=== PATIENT | female | born 1995 | race Caucasian/White ===

== ENCOUNTER 2024-03-23 19:34 | Emergency (ER) | payer SELFPAY ==
[2024-03-23 19:39] VITALS: BP 142/95
[2024-03-23 19:56] LABS: % Basophils 0.4 % (0-2); % Eosinophils 1.9 % (0-6); % Immature Granulocytes 0.4 % (0-0.5); % Lymphocytes 26.1 % (20.5-51.1); % Monocytes 6.9 % (1.7-9.3); % Neutrophils 64.3 % (42.2-75.2); Absolute Basophils 0.1 10^3/uL (0-0.2); Absolute Eosinophils 0.3 10^3/uL (0-0.7); Absolute Immature Granulocytes 0.1 10^3/uL (0-0.05); Absolute Lymphocytes 3.5 10^3/uL (1.2-3.4); Absolute Monocytes 0.9 10^3/uL (0.1-0.6); Absolute Neutrophils 8.6 10^3/uL (1.4-6.5); Hematocrit 37.8 % (37.0-47.0); Hemoglobin 12.9 g/dL (12.0-16.0); Mean Corp Hgb Conc. 34.1 g/dL (33.0-37.0); Mean Corpuscular Volume 82.2 fL (81.0-99.0); Mean Platelet Volume 9.5 fL (7.4-10.4); Nucleated Red Blood Cells % 0 %; Platelet Count 336 10^3/uL (130-400); Red Cell Dist. Width 13.9 % (11.5-14.5); Urine Albumin Negative (Neg - Trace); Urine Bilirubin Negative (Negative); Urine Character Clear (Clear); Urine Color Yellow; Urine Glucose Negative (Negative); Urine Ketone Negative (Negative); Urine Leukocyte Trace (Negative); Urine Nitrite Negative (Negative); Urine Occult Blood Negative (Negative); Urine Urobilinogen Negative (Neg - 1+); White Blood Cell Count 13.4 10^3/uL (4.8-10.8)
[2024-03-23 20:05] LABS: Urine Red Blood Cell 0-2 /HPF (0-2); Urine Squamous Cell 16-20 /LPF (Few)
[2024-03-23 20:06] LABS: Urine Bacteria Few (Negative)
[2024-03-23 20:15] LABS: ALT (SGPT) 26 U/L (0-35); AST (SGOT) 29 U/L (14-36); Albumin 4.4 g/dl (3.5-5.0); Alkaline Phosphatase 66 U/L (38-126); Blood Urea Nitrogen 8 mg/dl (7-17); Calcium 9.9 mg/dl (8.4-10.2); Carbon Dioxide 25 mmol/L (22-30); Chloride 104 mmol/L (98-107); Glucose 88 mg/dl (70-99); Potassium 3.9 mmol/L (3.5-5.1); Sodium 139 mmol/L (135-145); Total Bilirubin 0.4 mg/dl (0.2-1.3); Total Protein 7.2 g/dl (6.3-8.2); eGFR > 60.00
[2024-03-23 20:23] LABS: Lipase 104 U/L (23-300)
--- NOTE | 2024-03-23 22:38 | ED.GENMED ---
History of Present Illness
General
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
Source: patient
Exam Limitations: none
Time Seen by Provider: 03/23/24 21:52
History of Present Illness
History of Present Illness:
This is a 28 year old female that comes in with severe abd pain. State that she has sever abd pain and pelvic pain. States that she is on fertility medication and she thought yesterday that she ovulated. Then last night she started with severe abd
pain that she was in the position on her bed. States that she took Advil and this helped some. States that she thought she had a ruptured cyst but today the pain has continued and she feels bloated. Denies any fever, chills, chest pain, SOB,
nausea, vomiting, diarrhea, headache, dizziness, urinary burning.
Past History
Past History
ED Past Medical History: Asthma and Other (Migraines, PCOS)
ED Past Surgical History: Orthopedic (Right shoulder surgery) and Tonsilectomy
Social History
Tobacco: Non-smoker
Alcohol: None
Personal:
Living: with family
Family History
Family History: Negative Diabetes, Hypertension or CAD
Review of Systems
Review of Systems
All Other Systems: ROS reviewed and negative except as documented in HPI and ROS
Constitutional: Reports no symptoms; Denies fever or chills
EENT: Reports no symptoms
Respiratory: Reports no symptoms; Denies cough or trouble breathing
Cardiac: Reports no symptoms; Denies chest pain
ABD/GI: Reports abdominal pain; Denies nausea, vomiting or diarrhea
: Reports no symptoms; Denies dysuria, frequency or urgency
Musculoskeletal: Reports no symptoms
Skin: Reports no symptoms
Neurological: Reports no symptoms; Denies dizzy or headache
Psychiatric: Reports no symptoms
Phy Exam
General Physical Exam
General Presentation: no apparent distress
General age: appears stated age
General Skin: warm and dry
General Habitus: normal
General Mental: alert
General Hydration: appears well hydrated
ENT Exam
ENT Exam: TM's normal, pharynx normal and neck supple
Eye Exam
Eye Exam: EOMI
Cardiovascular Exam
Cardiovascular Exam: regular rate/rhythm, no edema, no murmur and normal peripheral pulses
Pulmonary Exam
Pulmonary Exam: lungs clear, no respiratory distress, no rales, chest non tender, no crackles, no rhonchi, no wheezing and no cough
Gastrointestinal Exam
Gastrointestinal Exam: normal bowel sounds, soft, no organomegaly, no pulsatile mass, non distended and tender (Lower abd tenderness R>L with rebound tenderness)
Musculoskeletal Exam
Musculoskeletal Exam: full ROM and no edema
Skin Exam
Skin Exam: normal color, warm/dry, no rash and no petechia
Psychiatric Exam
Psychiatric Exam: normal mood/affect
Course
Orders/Labs/Results
Orders:
Orders
03/23/24 19:49
Complete Blood Count/With Diff Urgent
Comprehensive Metabolic Panel Urgent
HCG, Serum Qualitative Screen Urgent
Comment: ADD ON
Lipase Urgent
Urine Culture Reflexed from UA [Urinalysis Reflex To Culture] Urgent
Date Specimen was Collected: 03/23/24
Time Specimen was Collected: 19:41
Urine Microscopic Reflex Cult Urgent
03/23/24 22:17
CT Abd/pelvis W Iv Cont Urgent
Comment:
Reason For Exam: Lower abd pain
0.9% Sodium Chloride 1000 ml [Nss] 1,000 ml IV BOLUS
US Pelvis Only (non-obstetric) Urgent
Comment:
Reason For Exam: abd pain
03/23/24 22:18
Add On- LAB Urgent
Tests Added?: HCG
03/23/24 22:41
Ketorolac [Toradol] 30 mg IV NOW STA
Abnormal Lab Results
03/23/24
19:49
WBC 13.4 H 10^3/uL
(4.8-10.8)
Abs Immat Gran (auto) 0.1 H 10^3/uL
(0-0.05)
Absolute Neuts (auto) 8.6 H 10^3/uL
(1.4-6.5)
Absolute Lymphs (auto) 3.5 H 10^3/uL
(1.2-3.4)
Absolute Monos (auto) 0.9 H 10^3/uL
(0.1-0.6)
Leukocyte Esterase Rfl Trace A
(Negative)
Urine Bacteria (Reflex) Few A
(Negative)
03/23/24 19:49
03/23/24 19:49
Leukocytosis, Urine negative for infection. Lipase normal at 104, HCG negative
Vital Signs
Initial and Last Documented VS:
Initial Vital Signs
Temp Pulse Resp BP Pulse Ox
98.2 F 108 20 142/95 99
03/23/24 19:39 03/23/24 19:39 03/23/24 19:39 03/23/24 19:39 03/23/24 19:39
Last Documented Vital Signs
Temp Pulse Resp BP Pulse Ox
98.2 F 108 20 114/74 99
03/23/24 19:39 03/23/24 19:39 03/23/24 19:39 03/24/24 00:00 03/24/24 00:00
MDM/Problems Addressed
Differential Diagnosis Includes:
Ruptured ovarian cyst. Appendicitis
MDM/Problems Addressed:
This is a 28 year old female that comes in with c/o abd pain. States that this started yesterday and was severe. States that this continued and she feels bloated and has severe abd pain.
Will get labs, Ultrasound and CT scan. Will give Pain medication and IV fluids.
Back into see patient. Reviewed US and CT scan. Explained that there is a right ovarian cyst and that she has follicles in both ovaries. Patient to use Tylenol for pain. Follow up with the ROVING OR YARN COLOR CHECKER. Return with any concerns.
Chronic conditions affecting care:
NA
Acute Exacerbation and/or Progression of Chronic Illness:
NA
*Radiology
Radiology exam reviewed: radiology read reviewed (CT-NO bowel or renal obstruction. NO free air or free fluid. 2.5X 2.2cm right ovarian cyst. Normal appendix Contracted gallbladder. Small fat-containing umbilical hernia. US- Uterus and ovaries
are normal in contour and echogenicity. Endometrial canal measures 5.2mm. Bilateral ovarian follicles ) and other (US cont- follicles noted. The dominant follicle/small cyst seen on CT is not visible on this transabdominal pelvic ultrasound. Ovarian
blood flow present bilaterally. )
*Pulse Oximetry
Patient hypoxic: no
*EKG
Interpreted by ED Provider?: NA
Rate: EKG- N/A
*Federal Judge Interpretation
Rate: Federal Judge- N/A
*Critical Care Note
Total Time (30-74mins, 75-104mins- exclusive of procedures): Not Applicable
ED Attending Note
-
Portions of this chart may have been created with voice recognition software.� Occasional wrong word or��sound alike� substitutions may have occurred due to the inherent limitations of voice recognition software.
Discharge Plan
Departure
Patient Disposition: Home (Routine Discharge)
Date of Disposition: 03/24/24
Time of Disposition: 00:31
Patient with high blood pressure during this ER visit?: No
Condition: Good
Covid-19: Not Applicable
Discharge Problem:
Cyst of right ovary
Instructions: Ovarian Cyst ED
Prescriptions:
No Action
[id number] fum-folic 1 EACH tablet
1 ea PO DAILY
acetaminophen 325 MG tablet
650 mg PO Q4HPRN PRN (Reason: mild pain) 0RF
ibuprofen 600 MG tablet
600 mg PO Q4HPRN PRN (Reason: moderate pain/cramps) 0RF
Referrals:
NONE,* [Family Provider] -
Activity Restrictions/Additional Instructions:
As discussed, your WBC are slightly elevated. Your Urine is negative for infection. Your CT shows that there is a right ovarian cyst and your appendix is normal. There is follicles in both ovaries. Please follow up with the ROVING OR YARN COLOR CHECKER. Please increase
your water intake to 8-8oz glasses daily. IF YOU HAVE ANY OTHER CONCERNS PLEASE RETURN TO THE EMERGENCY ROOM.
Interventions
Interventions:
*Risk Screen - Suicide Last Done: 03/23/24 19:39
*General Assessment Last Done: 03/23/24 19:39
*Neglect/Abuse Screening Last Done: 03/23/24 19:39
ED- Fall Risk Assessment Last Done: 03/23/24 22:59
*ED COVID-19 Vaccine History Last Done: 03/23/24 22:59
ED-Female Genitourinary Assessment Last Done: 03/23/24 22:46
Discharge Date and Time
Print Language: KAZAKH
[2024-03-23] MEDS: NSS 1000 IV (22:51)
[2024-03-23 22:52] LABS: HCG, Serum Qualitative Screen Negative
[2024-03-23] MEDS: TORADOL 30 MG IV (23:12)
[2024-03-23 23:15] VITALS: BP 124/76
[2024-03-24] VITALS: BP 114/74
== END 2024-03-24 00:37 | disposition home or self-care (01) ==
LOC: EMR 19:34
PROVIDERS: EMERGENCY PHYSICIAN Emergency Medicine
DX: N83.201 Unspecified ovarian cyst, right side (principal); D72.829 Elevated white blood cell count, unspecified; J45.909 Unspecified asthma, uncomplicated
CPT/HCPCS: 99284; 96374; 96361; 74177; 76856; 80053; 81003; 81015; 83690; 84703; 85025; Q9967

== ENCOUNTER → 2024-08-31 14:04 | Outpatient (REF) | payer OTHER, SELFPAY | LOC: PNTC 14:04 | PROVIDERS: ATTENDING PHYSICIAN Obstetrics & Gynecology | DX: O36.7 Maternal care for viable fetus in abdominal pregnancy (principal); Z32.01 Encounter for pregnancy test, result positive; Z36.9 Encounter for antenatal screening, unspecified | CPT/HCPCS: 76801 ==

== ENCOUNTER → 2024-09-19 09:03 | Outpatient (REF) | payer OTHER, SELFPAY | LOC: PNTC 09:03 | PROVIDERS: ATTENDING PHYSICIAN Obstetrics & Gynecology | DX: Z36.0 Encounter for antenatal screening for chromosomal anomalies (principal); Z36.82 Encounter for antenatal screening for nuchal translucency | CPT/HCPCS: 76801; 76813 ==

== ENCOUNTER → 2024-10-17 11:18 | Outpatient (REF) | payer OTHER, SELFPAY | LOC: PNTC 11:18 | PROVIDERS: ATTENDING PHYSICIAN Obstetrics & Gynecology | DX: O09.299 Supervision of pregnancy with other poor reproductive or obstetric history, unspecified trimester (principal) | CPT/HCPCS: 76805 ==

== ENCOUNTER → 2024-12-27 08:49 | Outpatient (REF) | payer OTHER, SELFPAY | LOC: PNTC 08:49 | PROVIDERS: ATTENDING PHYSICIAN Student in an Organized Health Care Education/Training Program | DX: Z87.59 Personal history of other complications of pregnancy, childbirth and the puerperium (principal) | CPT/HCPCS: 76816 ==

== ENCOUNTER → 2025-01-11 09:01 | Outpatient (REF) | payer OTHER, SELFPAY ==
--- NOTE | 2025-01-10 10:14 | PN.DIAED06 ---
Meal Plan - Gestational
- Breakfast
Gestational Diabetes Meal Plan Name: 1800 calories
Breakfast - Total Carbohydrate (grams): 30 (1 carb serving is 15 grams)
Breakfast - Starch Carbohydrate: 1 (carbs: starch, fruit, juice, milk)
Breakfast - Fruit Carbohydrate: 0 (no fruit or juice before noon)
Breakfast - Milk Carbohydrate: 1
Breakfast - Nonstarchy Vegetables: Yes
Breakfast - Meat/Protein: 1 (1 protein serving is 7 grams)
Breakfast - Fat: 2 (1 fat serving is 5 grams)
- Morning Snack
Morning Snack - Total Carbohydrate (grams): 30
Morning Snack - Starch Carbohydrate: 1
Morning Snack - Fruit Carbohydrate: 0 (no fruit or juice before noon)
Morning Snack - Milk Carbohydrate: 1
Morning Snack - Nonstarchy Vegetables: Yes
Morning Snack - Meat/Protein: 0.5
Morning Snack - Fat: 0
- Lunch
Lunch - Total Carbohydrate (grams): 45
Lunch - Starch Carbohydrate: 2
Lunch - Fruit Carbohydrate: 1
Lunch - Milk Carbohydrate: 0
Lunch - Nonstarchy Vegetables: Yes
Lunch - Meat/Protein: 2
Lunch - Fat: 1
- Afternoon Snack
Afternoon Snack - Total Carbohydrate (grams): 30
Afternoon Snack - Starch Carbohydrate: 1
Afternoon Snack - Fruit Carbohydrate: 1
Afternoon Snack - Milk Carbohydrate: 0
Afternoon Snack - Nonstarchy Vegetables: Yes
Afternoon Snack - Meat/Protein: 1
Afternoon Snack - Fat: 0
- Dinner
Dinner - Total Carbohydrate (grams): 45
Dinner - Starch Carbohydrate: 2
Dinner - Fruit Carbohydrate: 0
Dinner - Milk Carbohydrate: 1
Dinner - Nonstarchy Vegetables: Yes
Dinner - Meat/Protein: 2
Dinner - Fat: 2
- Evening Snack
Evening Snack - Total Carbohydrate (grams): 30
Evening Snack - Starch Carbohydrate: 1
Evening Snack - Fruit Carbohydrate: 0
Evening Snack - Milk Carbohydrate: 1
Evening Snack - Nonstarchy Vegetables: Yes
Evening Snack - Meat/Protein: 1
Evening Snack - Fat: 1
--- NOTE | 2025-01-11 10:35 | PN.DE ---
Diabetes Education
- -
01/11/2025 GESTATIONAL DIABETES CONSULTATION
Met with Samantha today for medical nutrition therapy, she is with an EDC 03/30/2025.
She has a 3 yr old son and history of stillbirth, and PMH of pre eclampsia. She is currently taking 2 81 mg ASA per day for preeclampsia prophylaxis.
She states she is in discussion with OBGYN and to deliver at 37 weeks due to PMH of pre eclampsia. I encouraged her to heed advice from providers for health of baby and herself. Her grandmother has DM, father is prediabetic. She has
irregular eating patterns. States the night prior to her OGTT she has fried foods and feels that contributed to the elevated values. Educated Samantha that high fat foods will elevate glucose for an extended period of time.
Explained glucose metabolism in body and what occurs during to cause increase blood sugar. Discussed importance of keeping BS well controlled to avoid complications to the baby during and after (macrosomia, hypoglycemia). Discussed
macronutrients, provided with 1800 benita GDM meal plan. Explained importance of proper food combining and portions to keep glucose levels even throughout the day.
Discussed physical activity, she walks when the weather is nice. I encouraged walking to keep glucose levels low.
Samantha presented to the appointment with Contour Next test strips, I provided Contour Next sample kit with glucometer and stated her test strips are at her pharmacy. Reviewed proper testing technique, testing sites and testing pattern. She is aware
to test FBS and 2 hr pp each meal. Expected results for FBS <95 mg/dl and 2 hr pp <120 mg/dl. Noted for blood sugar of 76 mg/dL 2 hr after breakfast this morning. Log sheet provided for her to record results, she will send a 4-day meal log with all
her FBG and 2hr Post prandial glucose numbers to this office for review. In addition, she will send all her glucose readings [facility] every [facility].
She was encouraged to reach out should she require insulin.
== END ==
LOC: DES 09:01
PROVIDERS: ATTENDING PHYSICIAN Obstetrics & Gynecology
DX: O24.419 Gestational diabetes mellitus in pregnancy, unspecified control (principal)
CPT/HCPCS: 99078

== ENCOUNTER → 2025-01-12 11:21 | Outpatient (REF) | payer OTHER, SELFPAY | LOC: PNTC 11:21 | PROVIDERS: ATTENDING PHYSICIAN Obstetrics & Gynecology | DX: O36.4XX0 Maternal care for intrauterine death, not applicable or unspecified (principal) | CPT/HCPCS: 59025; 76815 ==

== ENCOUNTER → 2025-01-19 11:37 | Outpatient (REF) | payer OTHER, SELFPAY | LOC: PNTC 11:37 | PROVIDERS: ATTENDING PHYSICIAN Obstetrics & Gynecology | DX: O36.4XX0 Maternal care for intrauterine death, not applicable or unspecified (principal) | CPT/HCPCS: 59025 ==

== ENCOUNTER → 2025-01-23 11:18 | Outpatient (REF) | payer OTHER, SELFPAY | LOC: PNTC 11:18 | PROVIDERS: ATTENDING PHYSICIAN Obstetrics & Gynecology | DX: O09.92 Supervision of high risk pregnancy, unspecified, second trimester (principal) | CPT/HCPCS: 59025 ==

== ENCOUNTER → 2025-01-26 11:21 | Outpatient (REF) | payer OTHER, SELFPAY | LOC: PNTC 11:21 | PROVIDERS: ATTENDING PHYSICIAN Obstetrics & Gynecology | DX: O36.5990 Maternal care for other known or suspected poor fetal growth, unspecified trimester, not applicable or unspecified (principal) | CPT/HCPCS: 59025; 76815 ==

== ENCOUNTER → 2025-01-30 11:18 | Outpatient (REF) | payer OTHER, SELFPAY | LOC: PNTC 11:18 | PROVIDERS: ATTENDING PHYSICIAN Obstetrics & Gynecology | DX: O36.5990 Maternal care for other known or suspected poor fetal growth, unspecified trimester, not applicable or unspecified (principal) | CPT/HCPCS: 59025 ==

== ENCOUNTER → 2025-02-02 11:08 | Outpatient (REF) | payer OTHER, SELFPAY | LOC: PNTC 11:08 | PROVIDERS: ATTENDING PHYSICIAN Obstetrics & Gynecology | DX: O36.4XX0 Maternal care for intrauterine death, not applicable or unspecified (principal) | CPT/HCPCS: 59025; 76815 ==

== ENCOUNTER → 2025-02-06 11:18 | Outpatient (REF) | payer OTHER, SELFPAY | LOC: PNTC 11:18 | PROVIDERS: ATTENDING PHYSICIAN Obstetrics & Gynecology | DX: P95 Stillbirth (principal); Z87.59 Personal history of other complications of pregnancy, childbirth and the puerperium | CPT/HCPCS: 59025; 76816 ==

== ENCOUNTER → 2025-02-09 11:26 | Outpatient (REF) | payer OTHER, SELFPAY | LOC: PNTC 11:26 | PROVIDERS: ATTENDING PHYSICIAN Obstetrics & Gynecology | DX: O36.4XX0 Maternal care for intrauterine death, not applicable or unspecified (principal) | CPT/HCPCS: 59025 ==

== ENCOUNTER → 2025-02-13 11:19 | Outpatient (REF) | payer OTHER, SELFPAY | LOC: PNTC 11:19 | PROVIDERS: ATTENDING PHYSICIAN Obstetrics & Gynecology | DX: O36.4XX0 Maternal care for intrauterine death, not applicable or unspecified (principal) | CPT/HCPCS: 59025; 76815 ==

== ENCOUNTER → 2025-02-16 11:31 | Outpatient (REF) | payer OTHER, SELFPAY | LOC: PNTC 11:31 | PROVIDERS: ATTENDING PHYSICIAN Obstetrics & Gynecology | DX: O36.4XX0 Maternal care for intrauterine death, not applicable or unspecified (principal) | CPT/HCPCS: 59025 ==

== ENCOUNTER → 2025-02-20 10:42 | Outpatient (REF) | payer OTHER, SELFPAY | LOC: PNTC 10:42 | PROVIDERS: ATTENDING PHYSICIAN Obstetrics & Gynecology | DX: O36.4XX0 Maternal care for intrauterine death, not applicable or unspecified (principal) | CPT/HCPCS: 59025; 76815 ==

== ENCOUNTER → 2025-02-22 08:27 | Outpatient (REF) | payer OTHER, SELFPAY | LOC: PNTC 08:27 | PROVIDERS: ATTENDING PHYSICIAN Obstetrics & Gynecology | DX: O36.4XX0 Maternal care for intrauterine death, not applicable or unspecified (principal) | CPT/HCPCS: 59025 ==

== ENCOUNTER → 2025-02-27 11:23 | Outpatient (REF) | payer OTHER, SELFPAY | LOC: PNTC 11:23 | PROVIDERS: ATTENDING PHYSICIAN Obstetrics & Gynecology | DX: P95 Stillbirth (principal) | CPT/HCPCS: 59025; 76816 ==

== ENCOUNTER 2025-02-28 19:15 | Observation (INO) | payer OTHER, SELFPAY ==
[2025-02-28 19:46] VITALS: BP 127/78; BMI 30.6
[2025-02-28 19:46] LABS: Hematocrit 32.0 % (37.0-47.0); Hemoglobin 11.1 g/dL (12.0-16.0); Mean Corp Hgb Conc. 34.7 g/dL (33.0-37.0); Mean Corpuscular Volume 79.8 fL (81.0-99.0); Platelet Count 284 10^3/uL (130-400); Red Cell Dist. Width 14.0 % (11.5-14.5)
[2025-02-28] MEDS: TYLENOL 1000 MG PO (19:51)
[2025-02-28 20:00] LABS: ALT (SGPT) 14 U/L (0-35); AST (SGOT) 18 U/L (14-36); Albumin 3.7 g/dl (3.5-5.0); Alkaline Phosphatase 120 U/L (38-126); Blood Urea Nitrogen 10 mg/dl (7-17); Calcium 9.5 mg/dl (8.4-10.2); Carbon Dioxide 22 mmol/L (22-30); Chloride 107 mmol/L (98-107); Estimated Creatinine Clearance 114 ml/min; Glucose 96 mg/dl (70-99); Potassium 4.3 mmol/L (3.5-5.1); Sodium 135 mmol/L (135-145); Total Protein 6.9 g/dl (6.3-8.2); eGFR > 60.00
== END 2025-02-28 20:37 | disposition home or self-care (01) ==
LOC: LDRP 19:15
PROVIDERS: ADMITTING PHYSICIAN Student in an Organized Health Care Education/Training Program; FAMILY PHYSICIAN Family Medicine
DX: O99.891 Other specified diseases and conditions complicating pregnancy (principal); R03.0 Elevated blood-pressure reading, without diagnosis of hypertension; R51.9 Headache, unspecified; Z3A.35 35 weeks gestation of pregnancy
CPT/HCPCS: 80053; 82570; 84156; 85027; 86850; 86900; 86901; G0378

== ENCOUNTER → 2025-03-02 11:24 | Outpatient (REF) | payer OTHER, SELFPAY | LOC: PNTC 11:24 | PROVIDERS: ATTENDING PHYSICIAN Obstetrics & Gynecology | DX: O36.4XX0 Maternal care for intrauterine death, not applicable or unspecified (principal) | CPT/HCPCS: 59025 ==

== ENCOUNTER → 2025-03-06 11:20 | Outpatient (REF) | payer OTHER, SELFPAY | LOC: PNTC 11:20 | PROVIDERS: ATTENDING PHYSICIAN Obstetrics & Gynecology | DX: O36.4XX0 Maternal care for intrauterine death, not applicable or unspecified (principal) | CPT/HCPCS: 59025; 76815 ==

== ENCOUNTER 2025-03-08 20:49 | Observation (INO) | payer OTHER, SELFPAY ==
[2025-03-08 21:13] LABS: Hematocrit 31.5 % (37.0-47.0); Hemoglobin 10.8 g/dL (12.0-16.0); Mean Corp Hgb Conc. 34.3 g/dL (33.0-37.0); Mean Corpuscular Volume 79.9 fL (81.0-99.0); Platelet Count 269 10^3/uL (130-400); Red Cell Dist. Width 14.2 % (11.5-14.5)
[2025-03-08 21:18] VITALS: BP 117/79; BMI 31.5
[2025-03-08 21:28] LABS: ALT (SGPT) 14 U/L (0-35); AST (SGOT) 20 U/L (14-36); Albumin 3.6 g/dl (3.5-5.0); Alkaline Phosphatase 123 U/L (38-126); Blood Urea Nitrogen 11 mg/dl (7-17); Calcium 9.6 mg/dl (8.4-10.2); Carbon Dioxide 20 mmol/L (22-30); Chloride 107 mmol/L (98-107); Estimated Creatinine Clearance > 125 ml/min; Glucose 108 mg/dl (70-99); Potassium 4.2 mmol/L (3.5-5.1); Sodium 134 mmol/L (135-145); Total Protein 6.6 g/dl (6.3-8.2); eGFR > 60.00
== END 2025-03-08 22:02 | disposition home or self-care (01) ==
LOC: LDRP 20:49
PROVIDERS: ADMITTING PHYSICIAN Obstetrics & Gynecology
DX: O36.8130 Decreased fetal movements, third trimester, not applicable or unspecified (principal); O26.893 Other specified pregnancy related conditions, third trimester; R03.0 Elevated blood-pressure reading, without diagnosis of hypertension; Z3A.36 36 weeks gestation of pregnancy
CPT/HCPCS: 80053; 82570; 84156; 85027; G0378

== ENCOUNTER → 2025-03-09 10:09 | Outpatient (REF) | payer OTHER, SELFPAY | LOC: PNTC 10:09 | PROVIDERS: ATTENDING PHYSICIAN Obstetrics & Gynecology | DX: O36.4XX0 Maternal care for intrauterine death, not applicable or unspecified (principal) | CPT/HCPCS: 59025 ==

== ENCOUNTER 2025-03-13 12:16 | Inpatient (IN) | payer OTHER, SELFPAY ==
[2025-03-13 12:27] VITALS: BP 127/81; BMI 31.3
[2025-03-13] MEDS: LR 1000 IV (13:30)
[2025-03-13 13:45] LABS: Hematocrit 34.6 % (37.0-47.0); Hemoglobin 11.4 g/dL (12.0-16.0); Mean Corp Hgb Conc. 32.9 g/dL (33.0-37.0); Mean Corpuscular Volume 81.8 fL (81.0-99.0); Nucleated Red Blood Cells % 0 %; Platelet Count 268 10^3/uL (130-400); Red Cell Dist. Width 14.5 % (11.5-14.5)
[2025-03-13 13:59] LABS: ALT (SGPT) 15 U/L (0-35); AST (SGOT) 20 U/L (14-36); Albumin 3.8 g/dl (3.5-5.0); Alkaline Phosphatase 155 U/L (38-126); Blood Urea Nitrogen 8 mg/dl (7-17); Calcium 9.7 mg/dl (8.4-10.2); Carbon Dioxide 20 mmol/L (22-30); Chloride 108 mmol/L (98-107); Estimated Creatinine Clearance > 125 ml/min; Glucose 67 mg/dl (70-99); Potassium 4.2 mmol/L (3.5-5.1); Sodium 134 mmol/L (135-145); Total Protein 6.9 g/dl (6.3-8.2); eGFR > 60.00
[2025-03-13] MEDS: CYTOTEC 25 MICROGRAM VAG (14:33)
[2025-03-13] MEDS: TYLENOL 650 MG PO (16:11)
[2025-03-13 16:18] LABS: Glucose - Point of Care 135 mg/dl (70-99)
[2025-03-13] MEDS: CYTOTEC 50 MICROGRAM PO (19:05)
[2025-03-13 20:48] LABS: Glucose - Point of Care 123 mg/dl (70-99)
[2025-03-13] MEDS: PEPCID 20 MG PO (21:47)
[2025-03-13] MEDS: VALTREX 500 MG PO (21:47)
[2025-03-13] MEDS: STADOL 1 MG IV (23:12)
--- NOTE | 2025-03-14 02:25 | DOWNTIME ---
There was a [employer] Downtime on 03/14/2025 from 0100 to 03/14/2025 at 0220. Downtime documentation of patient's care, including medication administrations, has been reconciled in the electronic record per guidelines. Refer to the
patient's paper chart under the miscellaneous tab to see printed paper medication records and downtime forms.
[2025-03-14] MEDS: CYTOTEC 50 MICROGRAM PO ×2 (03:15→11:38)
[2025-03-14 03:22] LABS: Glucose - Point of Care 90 mg/dl (70-99)
[2025-03-14 06:25] LABS: Glucose - Point of Care 84 mg/dl (70-99)
[2025-03-14] MEDS: CYTOTEC PO ×3 (07:27→15:37)
[2025-03-14 10:29] LABS: Glucose - Point of Care 85 mg/dl (70-99)
[2025-03-14] MEDS: VALTREX 500 MG PO (10:56)
[2025-03-14] MEDS: PEPCID 20 MG PO ×2 (10:56→20:04)
[2025-03-14] MEDS: PRENATAL PLUS 1 TABLET PO (10:56)
[2025-03-14 14:52] LABS: Glucose - Point of Care 98 mg/dl (70-99)
[2025-03-14] MEDS: LR 1000 IV ×2 (15:49→20:00)
[2025-03-14] MEDS: PITOCIN 30 UNITS/NSS 500 ML IV ×2 (15:49→20:56)
[2025-03-14] MEDS: PENICILLIN 110 UNITS IV (15:54)
[2025-03-14] MEDS: SUBLIMAZE 100 MCG EPIDURAL (17:13)
[2025-03-14] MEDS: FENTANYL/BUPIVACAINE 100 EPIDURAL (17:13)
[2025-03-14 18:29] LABS: Glucose - Point of Care 75 mg/dl (70-99)
[2025-03-14] MEDS: PENICILLIN 55 UNITS IV (20:04)
[2025-03-14] MEDS: VALTREX PO (20:05)
[2025-03-14 20:28] LABS: Glucose - Point of Care 71 mg/dl (70-99)
[2025-03-14] MEDS: XYLOCAINE-MPF 1% VIAL 30 ML INFIL (20:44)
[2025-03-14] MEDS: TYLENOL 650 MG PO (23:12)
[2025-03-15 05:18] LABS: Hematocrit 27.9 % (37.0-47.0); Hemoglobin 9.2 g/dL (12.0-16.0)
[2025-03-15] MEDS: COLACE 100 MG PO ×2 (07:54→21:10)
[2025-03-15] MEDS: TYLENOL 650 MG PO ×3 (07:54→21:10)
[2025-03-15] MEDS: MOTRIN 600 MG PO ×3 (07:54→21:10)
[2025-03-15] MEDS: PEPCID 20 MG PO (07:54)
[2025-03-15] MEDS: PRENATAL PLUS 1 TABLET PO (07:54)
[2025-03-15] MEDS: PEPCID PO (21:09)
[2025-03-16] MEDS: MOTRIN 600 MG PO (05:40)
[2025-03-16] MEDS: TYLENOL 650 MG PO (05:40)
[2025-03-16] MEDS: PRENATAL PLUS 1 TABLET PO (08:54)
[2025-03-16] MEDS: COLACE 100 MG PO (08:54)
[2025-03-17 13:19] LABS: Syphilis/T. pallidum Ab Reflex Negative (Negative)
== END 2025-03-16 13:29 | disposition home or self-care (01) | DRG 806 ==
LOC: LDRP 12:16
PROVIDERS: Obstetrics & Gynecology; ADMITTING PHYSICIAN Obstetrics & Gynecology
PROC: 3E0P7VZ Introduction of Hormone into Female Reproductive, Via Natural or Artificial Opening (ICD-10-PCS; 2025-03-13)
PROC: 10907ZC Drainage of Amniotic Fluid, Therapeutic from Products of Conception, Via Natural or Artificial Opening (ICD-10-PCS; 2025-03-14)
PROC: 0KQM0ZZ Repair Perineum Muscle, Open Approach (ICD-10-PCS; 2025-03-14)
PROC: 10E0XZZ Delivery of Products of Conception, External Approach (ICD-10-PCS; 2025-03-14)
DX: O14.04 Mild to moderate pre-eclampsia, complicating childbirth (principal); O98.32 Other infections with a predominantly sexual mode of transmission complicating childbirth; Z37.0 Single live birth; O24.420 Gestational diabetes mellitus in childbirth, diet controlled; Z3A.37 37 weeks gestation of pregnancy; O70.1 Second degree perineal laceration during delivery; O99.824 Streptococcus B carrier state complicating childbirth; G43.909 Migraine, unspecified, not intractable, without status migrainosus; J45.990 Exercise induced bronchospasm; O99.52 Diseases of the respiratory system complicating childbirth; O99.284 Endocrine, nutritional and metabolic diseases complicating childbirth; E28.2 Polycystic ovarian syndrome; A60.00 Herpesviral infection of urogenital system, unspecified; O09.293 Supervision of pregnancy with other poor reproductive or obstetric history, third trimester; Z88.8 Allergy status to other drugs, medicaments and biological substances; Z91.040 Latex allergy status; Z83.49 Family history of other endocrine, nutritional and metabolic diseases; Z80.8 Family history of malignant neoplasm of other organs or systems
CPT/HCPCS: 59025; 76818; 80053; 82570; 82962; 84156; 85014; 85018; 85025; 86780; 86850; 86900; 86901; 88307

== ENCOUNTER 2025-06-20 04:09 | Emergency (ER) | payer SELFPAY ==
[2025-06-20 04:11] VITALS: BP 138/92
--- NOTE | 2025-06-20 04:17 | ED.GENMED ---
History of Present Illness
General
Chief Complaint: Abdominal Symptoms
Source: patient
Exam Limitations: none
Time Seen by Provider: 06/20/25 04:15
Nursing documentation reviewed up to this point in time: agreed with
History of Present Illness
History of Present Illness:
29-year-old female with a past medical history of migraines presents to ER today with concerns of persistent periumbilical abdominal pain starting 2 days ago. It is associated with nausea, vomiting, and persistent daily diarrhea. Patient denies
any recent travel outside the country. She denies any blood in her stools. She denies any sick contacts. Pain is described in center of the abdomen and is persistent throughout the day and not relieved by bowel movements. The patient reports
that she has had a similar illness in the past but symptoms resolved on its own and the pain has never been this severe before. The pain does not radiate to the back of the pelvis. Patient thought the pain could be referred. Has not been getting
better. Patient tried using dramamine for nausea as well as antidiarrheals which did not help her symptoms. The patient denies any history of intra-abdominal surgeries.
Past History
Past History
ED Past Medical History: Asthma and Other (Migraines, PCOS)
ED Past Surgical History: Orthopedic (Right shoulder surgery) and Tonsilectomy
Social History
Tobacco: Non-smoker
Alcohol: None
Personal:
Living: with family
Family History
Family History: Negative Diabetes, Hypertension or CAD
Review of Systems
Review of Systems
All Other Systems: ROS reviewed and negative except as documented in HPI and ROS
Phy Exam
Physical Exam
Physical Exam:
General: Patient is well appearing and in no acute distress; non-toxic
Skin: Warm and dry, no rashes or lesions
Head: Normocephalic, atraumatic
Eyes: Sclera non-icteric. EOMs intact.
Cardiac: Regular rate and rhythm, no murmurs
Peripheral Vascular: No lower extremity swelling or edema
Pulm: Normal respiratory effort, no wheezes, rales, rhonchi
Abdomen: Periumbilical tenderness noted, no rebound tenderness, no guarding
Neuro: CN II-XII intact, no focal neurologic deficits.
Psychiatric: Appropriate mood and affect.
Course
Orders/Labs/Results
Orders:
Orders
06/20/25 04:26
0.9% Sodium Chloride 1000 ml [Nss] 1,000 ml IV BOLUS
Ketorolac [Toradol] 15 mg IV NOW STA
Metoclopramide [Reglan] 10 mg IV NOW STA
06/20/25 04:27
CT Abd/Pel (IV only)-DH only Urgent
Comment:
Reason For Exam: periumbilical pain
Urinalysis Reflex To Culture Urgent
Test Result ONCE
06/20/25 04:32
Complete Blood Count/With Diff Urgent
Comprehensive Metabolic Panel Urgent
HCG, Serum Qualitative Screen Urgent
Lipase Urgent
06/20/25 04:49
Stool Culture Urgent
LUIS CARLOS Source: Feces/Stool
Specimen Description:
Date Specimen was Collected: 06/20/25
Time Specimen was Collected: 04:47
06/20/25 06:11
Potassium Chloride [KCl] 40 meq PO NOW STA
Abnormal Lab Results
06/20/25
04:32
MCH 26.1 L pg
(27.0-31.0)
MCHC 31.1 L g/dL
(33.0-37.0)
RDW 14.8 H %
(11.5-14.5)
Potassium 3.3 L mmol/L
(3.5-5.1)
Glucose 136 H mg/dl
(70-99)
06/20/25 04:32
06/20/25 04:32
Vital Signs
Initial and Last Documented VS:
Initial Vital Signs
Temp Pulse Resp BP Pulse Ox
97.2 F 108 24 138/92 100
06/20/25 04:11 06/20/25 04:11 06/20/25 04:11 06/20/25 04:11 06/20/25 04:11
Last Documented Vital Signs
Temp Pulse Resp BP Pulse Ox
97.2 F 108 24 138/92 100
06/20/25 04:11 06/20/25 04:11 06/20/25 04:11 06/20/25 04:11 06/20/25 04:18
MDM/Problems Addressed
Differential Diagnosis Includes:
Differentials include gastroenteritis, colitis, appendicitis, diverticulitis
MDM/Problems Addressed:
29-year-old female presents to the ER today with concerns of nausea, vomiting, and abdominal pain. She states that she diarrhea. Patient reports that she thought she is getting better but the pain has been keeping her up at night and is not
relieved with bowel movements. On physical exam she is well-appearing no acute distress does not appear uncomfortable secondary to pain. She has periumbilical tenderness to palpation but no guarding. Abdomen is soft. She is afebrile. Labs
reviewed, no leukocytosis noted. CMP remarkable for mild hypokalemia. Her potassium was repleted. She is not . CAT scan shows acute gastroenteritis and colitis. Stool culture was obtained. Will hold off on antibiotics at this time.
Discussed conservative management. Discussed follow-up with primary care provider. Discussed tricked return precautions. Patient stable for discharge.
Chronic conditions affecting care:
Migraines
*Pulse Oximetry
SaO2: 100
Patient hypoxic: no
*Critical Care Note
Total Time (30-74mins, 75-104mins- exclusive of procedures): Not Applicable
Data Reviewed
Review of Other/Old Records Reveals: Records (Reviewed ER physician documentation from 03/23/2024 patient seen for cyst of the ovary)
Source: patient and records
ED Attending Note
-
Portions of this chart may have been created with voice recognition software.� Occasional wrong word or��sound alike� substitutions may have occurred due to the inherent limitations of voice recognition software.
Discharge Plan
Departure
Patient Disposition: Home (Routine Discharge)
Date of Disposition: 06/20/25
Time of Disposition: 06:35
Patient with high blood pressure during this ER visit?: Yes
Condition: Good
Discharge Problem:
Acute gastroenteritis
Instructions: Viral gastroenteritis in adults, BLOOD PRESSURE
Prescriptions:
New
metoclopramide HCl [Reglan] 10 mg tablet
10 mg PO Q6H Qty: 10 0RF
No Action
Vitamin 27 mg iron- 800 mcg Tablet
1 tab PO DAILY
ibuprofen 600 mg Tablet
600 mg PO Q6HPRN PRN (Reason: moderate pain/cramps) Qty: 90 0RF
Referrals:
NONE,* [Family Provider, Internal Medicine]
Activity Restrictions/Additional Instructions:
You will receive a call regarding the results of your stool culture. Please continue to stay well-hydrated. Please follow-up with your primary care provider. Reglan has been sent to your pharmacy. You can take 1 dose every 6 hours as needed.
PLEASE RETURN TO ER SHOULD YOU DEVELOP ACUTE WORSENING OR SYMPTOMS, FEVERS AND CHILLS, RECTAL BLEEDING, DARK TARRY STOOLS, INTRACTABLE NAUSEA OR VOMITING, CHEST PAIN, SHORTNESS OF BREATH, OR ANY OTHER SIGNS OR SYMPTOMS WORRISOME TO YOU.
Interventions
Interventions:
*Risk Screen - Suicide Last Done: 06/20/25 04:11
*General Assessment Last Done: 06/20/25 05:00
*Neglect/Abuse Screening Last Done: 06/20/25 04:11
*ED- Fall Risk Assessment Last Done: 06/20/25 05:00
*ED COVID-19 Vaccine History Last Done: 06/20/25 05:00
*ED Influenza Vaccine History Last Done: 06/20/25 05:00
DL-Llsugk-Pubcufkclu Assessment Last Done: 06/20/25 05:00
Discharge Date and Time
Print Language: ESTONIAN
[2025-06-20] MEDS: TORADOL 15 MG IV (04:39)
[2025-06-20] MEDS: NSS 1000 IV (04:44)
[2025-06-20] MEDS: REGLAN 10 MG IV (04:45)
[2025-06-20 04:59] LABS: Hematocrit 40.8 % (37.0-47.0); Hemoglobin 12.7 g/dL (12.0-16.0); Mean Corp Hgb Conc. 31.1 g/dL (33.0-37.0); Mean Corpuscular Volume 83.8 fL (81.0-99.0); Nucleated Red Blood Cells % 0 %; Platelet Count 338 10^3/uL (130-400); Red Cell Dist. Width 14.8 % (11.5-14.5)
[2025-06-20 05:13] LABS: HCG, Serum Qualitative Screen Negative
[2025-06-20 05:14] LABS: ALT (SGPT) 22 U/L (0-35); AST (SGOT) 19 U/L (14-36); Albumin 4.3 g/dl (3.5-5.0); Alkaline Phosphatase 67 U/L (38-126); Blood Urea Nitrogen 7 mg/dl (7-17); Calcium 8.9 mg/dl (8.4-10.2); Carbon Dioxide 23 mmol/L (22-30); Chloride 105 mmol/L (98-107); Glucose 136 mg/dl (70-99); Lipase 44 U/L (23-300); Potassium 3.3 mmol/L (3.5-5.1); Sodium 139 mmol/L (135-145); Total Protein 7.2 g/dl (6.3-8.2); eGFR > 60.00
[2025-06-20 06:00] VITALS: BP 118/81
[2025-06-20] MEDS: KCL 40 MEQ PO (06:19)
== END 2025-06-20 06:43 | disposition home or self-care (01) ==
LOC: EMR 04:09
PROVIDERS: Physician Assistant; EMERGENCY PHYSICIAN Student in an Organized Health Care Education/Training Program
DX: K52.9 Noninfective gastroenteritis and colitis, unspecified (principal); E87.6 Hypokalemia; R03.0 Elevated blood-pressure reading, without diagnosis of hypertension; J45.909 Unspecified asthma, uncomplicated; E28.2 Polycystic ovarian syndrome
CPT/HCPCS: 99284; 96374; 96375; 96361 ×2; 74177; 80053; 83690; 84703; 85025; 87045; 87046; 87427; Q9967

== ENCOUNTER 2025-08-07 15:50 | Emergency (ER) | payer SELFPAY ==
[2025-08-07 15:52] VITALS: BP 126/88
[2025-08-07 16:20] LABS: Hematocrit 37.1 % (37.0-47.0); Hemoglobin 11.6 g/dL (12.0-16.0); Mean Corp Hgb Conc. 31.3 g/dL (33.0-37.0); Mean Corpuscular Volume 79.4 fL (81.0-99.0); Nucleated Red Blood Cells % 0 %; Platelet Count 345 10^3/uL (130-400); Red Cell Dist. Width 15.5 % (11.5-14.5)
[2025-08-07 16:26] LABS: ALT (SGPT) 25 U/L (0-35); AST (SGOT) 23 U/L (14-36); Albumin 4.4 g/dl (3.5-5.0); Alkaline Phosphatase 66 U/L (38-126); Blood Urea Nitrogen 8 mg/dl (7-17); Calcium 9.0 mg/dl (8.4-10.2); Carbon Dioxide 24 mmol/L (22-30); Chloride 103 mmol/L (98-107); Glucose 100 mg/dl (70-99); Potassium 4.0 mmol/L (3.5-5.1); Sodium 135 mmol/L (135-145); Total Protein 7.3 g/dl (6.3-8.2); eGFR > 60.00
--- NOTE | 2025-08-07 16:37 | ED.GENMED ---
History of Present Illness
General
Chief Complaint: Problems
Source: patient
Time Seen by Provider: 08/07/25 16:22
History of Present Illness
History of Present Illness:
29-year-old female, G5, P3, 1 previous miscarriage, suspects that she had a second miscarriage but due to a slightly rising hCG level was sent to the ER by her LEAD REFINERY SUPERVISOR to rule out ectopic . Patient states that she believes she passed the
contents of the , bleeding is still very mild but has no pain. Denies any fevers or other infectious symptoms, lightheadedness, dizziness, shortness of breath or any other concerns.
Past History
Past History
ED Past Medical History: Asthma and Other (Migraines, PCOS)
ED Past Surgical History: Orthopedic (Right shoulder surgery) and Tonsilectomy
Social History
Tobacco: Non-smoker
Alcohol: None
Drug: None
Personal:
Living: with family
Family History
Family History: Negative Diabetes, Hypertension or CAD
Review of Systems
Review of Systems
All Other Systems: ROS reviewed and negative except as documented in HPI and ROS
Phy Exam
Physical Exam
Physical Exam:
GENERAL: Alert , in no apparent distress
EYE: conjunctiva clear
Head: Normocephalic atraumatic
NECK: Supple,
ENT: mmm.
LUNGS: no acute respiratory distress
NEUROLOGICAL: Alert and oriented
SKIN: Warm and dry, skin intact.
MUSCULOSKELETAL: well perfused.
PSYCH: Normal and appropriate interaction.
Scores
Heart Failure Risk
Heart Failure Risk Score: Not Applicable
Heart Score for Chest Pain Patients
STEMI patient?: Not applicable
Withdrawal Assessment of Alcohol
Withdrawal Assessment Completed?: Not applicable
Course
Orders/Labs/Results
Orders:
Orders
08/07/25 15:59
US W Transvaginal Urgent
Reason For Exam: bleeding/6 wks
08/07/25 16:03
Complete Blood Count/With Diff Urgent
Comprehensive Metabolic Panel Urgent
HCG, Beta Quantitative [Beta HCG Quantitative] Urgent
Is this a screen?: No
Abnormal Lab Results
08/07/25
16:03
WBC 10.9 H 10^3/uL
(4.8-10.8)
Hgb 11.6 L g/dL
(12.0-16.0)
MCV 79.4 L fL
(81.0-99.0)
MCH 24.8 L pg
(27.0-31.0)
MCHC 31.3 L g/dL
(33.0-37.0)
RDW 15.5 H %
(11.5-14.5)
Absolute Neuts (auto) 7.5 H 10^3/uL
(1.4-6.5)
Absolute Monos (auto) 0.7 H 10^3/uL
(0.1-0.6)
Glucose 100 H mg/dl
(70-99)
08/07/25 16:03
08/07/25 16:03
Vital Signs
Initial and Last Documented VS:
Initial Vital Signs
Temp Pulse Resp BP Pulse Ox
98.6 F 93 18 126/88 100
08/07/25 15:52 08/07/25 15:52 08/07/25 15:52 08/07/25 15:52 08/07/25 15:52
Last Documented Vital Signs
Temp Pulse Resp BP Pulse Ox
98.6 F 93 18 126/88 100
08/07/25 15:52 08/07/25 15:52 08/07/25 15:52 08/07/25 15:52 08/07/25 16:40
Information
Weeks gestation: N/A
Location: Location: (unknown)
MDM/Problems Addressed
Differential Diagnosis Includes:
Incomlete AB
Complete AB
Ectopic
Missed AB
MDM/Problems Addressed:
29-year-old female presenting to the ER for evaluation of ectopic at the request of LEAD REFINERY SUPERVISOR. Patient is without any current symptoms and feels well. Labs initiated on arrival showed no significant anemia. Ultrasound ordered. Will notify
TRAFFIC WORKER pending remaining workup.
*Radiology
Radiology exam reviewed: radiology read reviewed
*Pulse Oximetry
SaO2: 100
Oxygen Mode of Delivery: Room air
Patient hypoxic: no
*Critical Care Note
Total Time (30-74mins, 75-104mins- exclusive of procedures): Not Applicable
Patient Management
Discussion with other providers: Rider Ticket Worker
Escalation/DeEscalation of care consider admission/obs:
hCG 412, ultrasound shows no intrauterine . Patient reports that the hCG today is down from greater than 500 the other day. I discussed the case with on-call LEAD REFINERY SUPERVISOR, Dr. Melendez, patient will have repeat hCG level done in another 48
hours. Will follow-up as an outpatient. Patient advised on ectopic return precautions.
ED Attending Note
-
Portions of this chart may have been created with voice recognition software.� Occasional wrong word or��sound alike� substitutions may have occurred due to the inherent limitations of voice recognition software.
Discharge Plan
Departure
Patient Disposition: Home (Routine Discharge)
Date of Disposition: 08/07/25
Time of Disposition: 18:06
Patient with high blood pressure during this ER visit?: No
Discharge Problem:
, location unknown
Instructions: Miscarriage (DC)
Prescriptions:
No Action
Vitamin 27 mg iron- 800 mcg Tablet
1 tab PO DAILY
ibuprofen 600 mg Tablet
600 mg PO Q6HPRN PRN (Reason: moderate pain/cramps) Qty: 90 0RF
metoclopramide HCl [Reglan] 10 mg tablet
10 mg PO Q6H Qty: 10 0RF
Referrals:
NONE,* [Family Provider, Internal Medicine]
Interventions
Interventions:
*General Assessment Last Done: 08/07/25 15:52
*Neglect/Abuse Screening Last Done: 08/07/25 15:52
[facility] Risk Assessment Tool Last Done: 08/07/25 16:41
*Risk Screen - Suicide (C-SSRS) Last Done: 08/07/25 15:52
*Nursing Disposition Last Done: 08/07/25 18:10
ED-Female Genitourinary Assessment Last Done: 08/07/25 16:40
Discharge Date and Time
Discharge Date/Time: 08/07/25 18:10
Print Language: IRANIAN
== END 2025-08-07 18:10 | disposition home or self-care (01) ==
LOC: EMR 15:50
PROVIDERS: EMERGENCY PHYSICIAN Emergency Medicine
DX: O00.90 Unspecified ectopic pregnancy without intrauterine pregnancy (principal); O99.511 Diseases of the respiratory system complicating pregnancy, first trimester; J45.909 Unspecified asthma, uncomplicated; O99.281 Endocrine, nutritional and metabolic diseases complicating pregnancy, first trimester; E28.2 Polycystic ovarian syndrome; Z3A.01 Less than 8 weeks gestation of pregnancy
CPT/HCPCS: 99284; 76801; 76817; 80053; 84702; 85025